=== PATIENT | male | born 1945 | race Caucasian/White ===

== ENCOUNTER 2019-10-05 04:12 | Emergency (ER) | payer MEDICARE, OTHER ==
[~2019-10-05] VITALS: Ht 172.7 cm; Wt 115.7 kg
[2019-10-05] MEDS ORDERED: SIMVASTATIN20 MG PO (04:21)
[2019-10-05] MEDS ORDERED: LOSARTAN POTAS100 MG PO (04:22)
[2019-10-05] MEDS ORDERED: OMEPRAZOLE40 MG PO (04:22)
[2019-10-05] MEDS ORDERED: METOPROLOL SUCC50 MG PO (04:22)
[2019-10-05] MEDS ORDERED: ONE TOUCH ULTR1 EACH MISC (04:23)
[2019-10-05] MEDS ORDERED: ASPIR 8181 MG (04:23)
[2019-10-05] MEDS ORDERED: INVOKAMET XR 51 EAC1 PO (04:23)
[2019-10-05] MEDS ORDERED: MECLIZINE HCL25 MG PO (05:23)
--- NOTE | 2019-10-05 20:45 | EKG ---
[facility] [address] [facility] [place] [address] Signed Normal sinus rhythm Septal infarct , age undetermined Abnormal ECG No previous ECGs available Confirmed by LUANNE WILDER MD ([id number]) on 10/05/2019 8:45:16 PM Electronically Signed By: LUANNE WILDER MD 10/05/19 2045 PATIENT NAME: BAR WADE Electrocardiogram DATE OF : 49 PHYSICIAN: LUANNE WILDER MD REPORT #: [id number] REPORT IS CONFIDENTIAL AND NOT TO BE RELEASED WITHOUT AUTHORIZATION
== END 2019-10-05 05:32 | disposition home or self-care (01) ==
LOC: ED 04:12
DX: H81.20 Vestibular neuronitis, unspecified ear (principal); I10 Essential (primary) hypertension; E11.9 Type 2 diabetes mellitus without complications; E78.00 Pure hypercholesterolemia, unspecified; Z87.891 Personal history of nicotine dependence; Z79.899 Other long term (current) drug therapy
CPT/HCPCS: 70450; 80053; 83735; 84484; 85025; 93005; 93010; 96374; 99284-25; J2405

== ENCOUNTER 2020-12-11 12:34 | Emergency (ER) | payer MEDICARE, OTHER ==
[~2020-12-11] VITALS: Ht 177.8 cm; Wt 113.4 kg
[~2020-12-11 12:34] MED LIST: ASPIR 8181 MG; INVOKAMET XR 51 EAC1 PO; LOSARTAN POTAS100 MG PO; MECLIZINE HCL25 MG PO; METOPROLOL SUCC50 MG PO; OMEPRAZOLE40 MG PO; ONE TOUCH ULTR1 EACH MISC; SIMVASTATIN20 MG PO
--- OUTSIDE RECORDS SUMMARY | 2020-12-11 12:36 | XMS ---
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 Stephanie VISIT COUNT (12 MO.) Cristina Hemphill TOTAL 1 NOTE: Visits indicate total known visits. ED/UCC VISIT TRACKING (12 MO.) 12/11/2020 12:35 [facility] [place] TYPE: Emergency COMPLAINT: - RIGHT WRIST INJ INPATIENT VISIT TRACKING (12 MO.) No inpatient visits to display in this time frame [email or web address]
[2020-12-11] MEDS ORDERED: TAMSULOSIN HCL0.4 MG PO (12:48)
[2020-12-11] MEDS ORDERED: METFORMIN HCL1000 MG PO (12:48)
[2020-12-11] MEDS ORDERED: GABAPENTIN300 MG PO (12:49)
[2020-12-11] MEDS ORDERED: PIOGLITAZONE HC15 MG PO (12:49)
[2020-12-11] MEDS ORDERED: HYDROCODON-ACE1 EA10 PO (14:34)
== END 2020-12-11 14:45 | disposition home or self-care (01) ==
LOC: ED 12:34
DX: S63.91XA Sprain of unspecified part of right wrist and hand, initial encounter (principal); W01.10XA Fall on same level from slipping, tripping and stumbling with subsequent striking against unspecified object, initial encounter; I10 Essential (primary) hypertension; E11.9 Type 2 diabetes mellitus without complications; E78.00 Pure hypercholesterolemia, unspecified; Z88.8 Allergy status to other drugs, medicaments and biological substances; Z79.899 Other long term (current) drug therapy; Z79.84 Long term (current) use of oral hypoglycemic drugs; Z79.82 Long term (current) use of aspirin
CPT/HCPCS: 73110; 99283-25

== ENCOUNTER 2021-03-18 10:32 | Emergency (ER) | payer MEDICARE ==
[~2021-03-18] VITALS: Ht 177.8 cm; Wt 113.4 kg
[~2021-03-18 10:32] MED LIST changes: +GABAPENTIN300 MG PO; +HYDROCODON-ACE1 EA10 PO; +METFORMIN HCL1000 MG PO; +PIOGLITAZONE HC15 MG PO; +TAMSULOSIN HCL0.4 MG PO
--- OUTSIDE RECORDS SUMMARY | 2021-03-18 10:34 | XMS ---
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 ELiliana VISIT COUNT (12 MO.) Ning Hemphill TOTAL 2 NOTE: Visits indicate total known visits. ED/UCC VISIT TRACKING (12 MO.) 03/18/2021 10:32 [facility] TYPE: Emergency COMPLAINT: - HIGH BLOOD PREASSURE, LOW PULSE RATE 12/11/2020 12:35 [facility] [place] TYPE: Emergency COMPLAINT: - RIGHT WRIST INJ DIAGNOSES: - Other skilled nursing (current) drug therapy - [facility]PC (current) use of oral hypoglycemic drugs - [facility] (current) use of aspirin - Fall on same level from slipping, tripping and stumbling with subsequent striking against unspecified object, initial encounter - Type 2 diabetes mellitus without complications - Essential (primary) hypertension - Sprain of unspecified part of right wrist and hand, initial encounter - Allergy status to other drugs, medicaments and biological substances - Pure hypercholesterolemia, unspecified INPATIENT VISIT TRACKING (12 MO.) No inpatient visits to display in this time frame [email or web address]
[2021-03-18] MEDS ORDERED: ASPIRIN81 MG PO (11:02)
== END 2021-03-18 12:16 | disposition home or self-care (01) ==
LOC: ED 10:32
DX: I10 Essential (primary) hypertension (principal); E11.9 Type 2 diabetes mellitus without complications; E78.00 Pure hypercholesterolemia, unspecified; Z79.82 Long term (current) use of aspirin; Z79.84 Long term (current) use of oral hypoglycemic drugs; Z79.899 Other long term (current) drug therapy
CPT/HCPCS: 99283